=== PATIENT | male | born 1990 | race Caucasian/White ===

== ENCOUNTER 2020-06-04 16:11 | Outpatient (REF) | payer MEDICAID, SELFPAY ==
[2020-06-04 16:49] LABS: MANUAL DIFF FLAG NO
[2020-06-04 16:55] LABS: Basophils Percent Auto 0.2 % (0-2); Eosinophils Absolute Auto 0.1 X10*3/uL (0.0-0.4); Eosinophils Percent Auto 1.2 % (0-4); Hematocrit 45.5 % (42-52); Hemoglobin 15.4 g/dl (14.0-18.0); Imm Gran Abs Auto 0.01 X10*3/uL (0.00-0.03); Imm Gran Pct Auto 0.2 % (0.0-0.4); Lymphocytes Absolute Auto 1.6 X10*3/uL (1.2-4.9); Lymphocytes Percent Auto 33.1 % (20-40); Mean Corpuscular HGB Conc 33.8 g/dl (31.0-36.0); Mean Corpuscular Hemoglobin 27.9 pg (27.0-33.0); Mean Corpuscular Volume 82.6 fL (80-98); Mean Platelet Volume 9.5 fL (9.4-12.4); Monocytes Absolute Auto 0.6 X10*3/uL (0.1-1.2); Monocytes Percent Auto 11.3 % (2-11); Neutrophils Absolute Auto 2.7 X10*3/uL (2.0-8.3); Platelet Count 264 X10*3/uL (160-400); Red Blood Count 5.51 X10*6/uL (4.60-5.80); Red Cell Distribution Width 12.6 % (11.0-16.0)
[2020-06-04 17:27] LABS: Alanine Aminotransferase 113 U/L (0-40); Albumin Level 4.5 g/dL (3.5-5.0); Alkaline Phosphatase 82 U/L (39-117); Anion Gap 14 (12-20); Aspartate Amino Transferase 44 U/L (5-37); Bilirubin Total 0.5 mg/dL (0.0-1.0); Blood Urea Nitrogen 15 mg/dL (9-16); Calcium 9.4 mg/dL (8.4-10.2); Carbon Dioxide 26 mmol/L (22-29); Chloride 105 mmol/L (96-108); Cholesterol 154 mg/dL; Estimated Glomerular Filt Rate > 60; Glucose Random 93 mg/dL (60-115); Potassium 3.8 mmol/L (3.3-5.1); Sodium 141 mmol/L (135-145); Total Protein 7.7 g/dL (6.5-8.0)
[2020-06-04 17:42] LABS: Thyroid Stimulating Hormone 2.19 uIU/mL (0.32-4.0)
== END 2020-06-04 16:12 | disposition home or self-care (01) ==
LOC: HO.LAB 16:11
PROVIDERS: PCP Internal Medicine; Visit Provider Internal Medicine
DX: R79.89 Other specified abnormal findings of blood chemistry (principal); R63.5 Abnormal weight gain
CPT/HCPCS: 36415; 80053; 82465; 84443; 85025

== ENCOUNTER 2020-06-18 08:23 | Outpatient (REF) | payer MEDICAID, SELFPAY ==
--- NOTE | ~2020-06-18 | US_ITS ---
EXAMINATION: US ABDOMEN COMPLETE CLINICAL INFORMATION: Abdominal pain. COMPARISON: None TECHNIQUE: Real-time imaging of the abdominal viscera. FINDINGS: PANCREAS: Head and body unremarkable. The tail is obscured by overlying bowel gas. ABDOMINAL AORTA: The proximal, mid, and distal segments are normal in caliber. INFERIOR VENA CAVA: Visualized portions are normal. LIVER: There is diffuse increased echogenicity of the liver consistent with fatty infiltration. The liver is normal in size. The liver contour is normal. No focal hepatic lesion. There is no intrahepatic biliary duct dilatation seen. GALLBLADDER: Normal. The gallbladder is physiologically distended without evidence of stones, sludge, polyps, wall thickening or pericholecystic fluid. COMMON BILE DUCT: Not identified. RIGHT KIDNEY: Normal. No hydronephrosis. No renal calculi or focal parenchymal lesions. The kidney measures 11.4 cm in maximum dimension. LEFT KIDNEY: Normal. No hydronephrosis. No renal calculi or focal parenchymal lesions. The kidney measures 10.0 cm in maximum dimension. SPLEEN: Normal. The spleen measures 9.4 cm in maximum dimension. FREE FLUID: None. US/US abdomen complete IMPRESSION: Fatty infiltration of the liver.
== END 2020-06-18 08:24 | disposition home or self-care (01) ==
LOC: HO.US 08:23
PROVIDERS: PCP Internal Medicine; Visit Provider Internal Medicine
DX: R10.9 Unspecified abdominal pain (principal)
CPT/HCPCS: 76700

== ENCOUNTER 2024-05-23 15:55 | Emergency (ER) | payer MEDICAID, SELFPAY ==
--- NOTE | ~2024-05-23 | CT_ITS ---
CLINICAL HISTORY: fall and hit head CT cervical spine without contrast Comparison: None Findings: No acute fracture of the cervical spine. Mild reversal of the cervical lordosis. 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 Mild left foraminal narrowing of the cervicothoracic junction with minimal facet arthropathy. Additional ligament calcifications noted. No paraspinal hematoma. Mild motion about imaged lung apices. Degenerative changes include imaged temporomandibular joints. IMPRESSION: 1. No acute fracture of the cervical spine. 2. Reversal of the cervical lordosis. This document has been electronically signed by: Eric Soliz MD on 05/23/2024 21:17:51
--- NOTE | ~2024-05-23 | CT_ITS ---
CLINICAL HISTORY: fall and hit head CT head without contrast Comparison: None Findings: No acute intracranial hemorrhage. No midline shift or hydrocephalus. [place] matter-white matter differentiation is adequate for technique and artifacts. Imaged paranasal sinuses are well aerated. Imaged mastoid air cells are well aerated. No acute skull fracture. Scalp Scarring suggested , particularly over left parietal and occipital convexities. IMPRESSION: No acute intracranial abnormality by CT. This document has been electronically signed by: Eric Soliz MD on 05/23/2024 21:31:02
--- NOTE | ~2024-05-23 | CT_ITS ---
CLINICAL HISTORY: fall, L sided swelling and laceration CT maxillofacial without contrast Comparison: None Findings: No acute fractures. No dislocations. Temporomandibular joints are intact. Mucosal thickening within the right maxillary sinus. No air-fluid levels. Unremarkable orbital contents. Visualized intracranial contents are within normal limits. Tiny pocket of gas within the soft tissues of the left cheek, compatible with penetrating injury. No radiopaque foreign body. IMPRESSION: No evidence of fracture or foreign body. This document has been electronically signed by: Leyla Abebe MD on 05/23/2024 17:21:38
[2024-05-23 16:01] VITALS: BP 139/71; PULSE 101; RESP 18; TEMP 37.2; O2SAT 100; BMI 38.9
--- NOTE | 2024-05-23 16:01 | ED_ITS ---
HPI - General Adult General Chief complaint: Head Injury Stated complaint: L Eye Cheek Lac Fall 05/23/24 Time Seen by Provider: 05/23/24 20:20 Source: patient Mode of arrival: ambulatory Limitations: no limitations History of Present Illness ED Provider: Jeremiah BRANDON HPI narrative: 33 yold male presents to ED for left cheek laceration after falling down the stairs. Patient states he was going down the stairs in the basement did not turn the light off any tripped and fell and hit his face on the heater. Patient denies any other complaints or loss of consciousness. Patient states no past medical history Related Data Allergies Allergy/AdvReac Type Severity Reaction Status Date / Time No Known Allergies Allergy Verified 05/23/24 16:04 Review of Systems 2 Review of Systems: Left cheek laceration Yes all other systems are reviewed and are negative COUNT INCLUDES THE [facility] Social History Social History Alcohol intake: never Smoked in Last 30 Days: No Use of substances other than those prescribed or required for medical reasons: No Advance Directives: No Advance Directives Information Provided: Yes Physical Exam ED Vital Signs: Vital Signs - 24 hr 05/23/24 16:01 05/23/24 22:13 05/23/24 22:21 Temperature 99 F 98.2 F 98.2 F Pulse Rate 101 H 83 83 Respiratory Rate 18 17 17 Blood Pressure 139/71 130/79 130/79 Pulse Oximetry 100 99 99 Oxygen Delivery Method Room Air Room Air BMI result Body Mass Index 38.9 Const General: cooperative, healthy appearing, comfortable, no acute distress, well developed, alert, awake and Physically active Orientation/consciousness: patient oriented x3 HENMT Head: Yes normal to inspection, Yes No palpable skull fracture present, Yes normocephalic and Yes atraumatic Head images: 2 1. Laceration control bleeding. No muscle bone exposure. Mild tenderness on palpation. Ears: hearing grossly normal bilaterally, external ears normal, TM's normal bilaterally, TM normal on the right, TM normal on the left, EAC's normal, mastoids normal and no periauricular adenopathy Eyes General: appearance normal, both eyes and all related structures Neck Neck: Yes normal visual inspection, Yes full ROM, Yes no lymphadenopathy, Yes no meningeal signs, Yes trachea midline, Yes supple, No anterior neck swelling and No tender Chest Chest palpation & inspection: normal inspection of the chest and normal palpation of entire chest wall Resp Effort & Inspection: normal respiratory effort and able to speak in complete sentences Auscultation: clear to auscultation bilaterally Cardio Jugular venous distension: no JVD Heart sounds: S1 normal heart sound present and S2 normal heart sound present GI Inspection: Yes normal to inspection Palpation (GI): Soft to palpation, not firm, nontender, no guarding and not rigid General: Yes no CVA tenderness Back/Spine/Pelvis Back: no CVA tenderness and No back tenderness Skin General skin exam: no rashes or lesions noted, elasticity normal and turgor normal Neuro General: patient oriented x3, gait normal, tone normal, moves all extremities, Normal light touch and pain sensation, no meningeal signs, no focal motor deficits, CN's II-XI intact bilaterally and normal sensation to monofilament Extrem General: Yes normal to inspection, Yes full ROM and Yes capillary refill normal Psych Appearance: grossly normal, well kempt and not disheveled Course Course Course Narrative: This is a rapid medical exam performed by Viridiana Vera NP: Additional HPI, ROS, PE not included below will be deferred to primary provider. Patient is a 33-year-old male with cognitive delay presenting with mother with complaint of facial injury. States he missed a step while walking down the stairs, and fell hitting his face on the railing. Denies loss of consciousness. Unsure last tetanus. Not anticoagulated. Approx 1 laceration to left maxillary area, contusion L eyebrow. Plan: lac will require repair, update Tdap, CT facial bones Medications Administered Discontinued Medications Generic Name Dose Route Start Last Admin Trade Name Deanna PRN Reason Stop Dose Admin Diphtheria/Tetanus/Acell Pertussis 0.5 ml 05/23/24 16:05 05/23/24 21:09 Diphth,Pertus(Acell),Tet Adult 0.5 Ml Syringe IM 05/23/24 16:06 0.5 ml .ONCE ONE Administration Lidocaine/Epinephrine 10 ml 05/23/24 21:08 05/23/24 21:10 Lidocaine Hcl 1%/Epi 1:100,000 10 Ml Vial INFILTRATI 05/23/24 21:09 10 ml ONCE ONE Administration Medical Decision Making Medical Decision Making MDM Narrative: 33-year-old male with left cheek laceration after falling down stairs. Head and neck cervical spine imaging came back normal. Facial CT scan normal. Wound cleaned with sterile saline Betadine iodine. Lidocaine 1% with epi used 6ml for local injection. Seven nylon sutures placed. Family member and patient explained worrisome signs and informed to return to the ED immediately. Differential Diagnosis Differential Diagnoses: The differential diagnosis associated with the presentation includes (Patient fracture brain bleed cervical spine fracture) Admission/Observation Consideration of admission/observation: Escalation of care including admission/observation considered Independent Interpretation I performed an independent interpretation of an: CT Scan Independent Historian Clinical information obtained from an independent historian. History obtained from or confirmed by: Other (Patient) Discharge Plan Discharge Clinical Impression: Closed head injury, Facial laceration Patient Disposition: Home, Self-Care Instructions: Laceration (ED), Head Injury (ED) Additional Instructions: Your images came back negative for any life-threatening etiologies. Your sutures should be kept dry the 1st 48 hours. Sutures should be removed within the next 5-7 days at any ED urgent care or primary care provider. Return to the ED immediately for any headache, nausea, vomiting, chest pain, shortness of breath, or any other concerning symptoms. Recommend follow up with primary care provider Stand Alone Forms: Work/School Release Interventions: ED Discharge Assessment Last Done: 05/23/24 22:21 Discharge Date/Time: 05/23/24 22:22 Print Language: Greek
--- OUTSIDE RECORDS SUMMARY | 2024-05-23 19:43 | XMS_ITS | Clinical Summary ---
Author Organization [facility] Address [address] [place] [address] Phone Care Team Providers Care Concession Attendant Name Role Phone Unavailable Primary Care Provider Unavailabl e Immunizations Name Administration Dates Next Due DTP 06/21/1996, 5,02/25/1994,02/19,01/11/1992 Hep B, ped/adol 03/29/1995,01/11/1992,1991 Hib (PRP-T) 02/04/1994,02/20/1992,01/11/1992 MMR 06/21/1996,02/04/1994 Meningococcal Conj (Menactra) MCV4P 12/23/2006 OPV 06/21/1996, 4,02/20/1992,01/10 Td (adult) (MBL), 2 Lf tetan us toxoid, PF, adsorbed 09/12/2003 Tdap 12/23/2006 Family History Relation Name Status Comments Brother Alive Brother: Health y, Healthy, healthy Father Alive Father: Healthy Maternal Grandmother Materna l grandmother: Heart disease, Asthma Mother Alive Mother: Healthy Social History Tobacco Use Types Packs/Day Years Used Date Smoking Tobacco: Never Assessed Sex and Gender Information Value Date Recorded Sex Assigned at Not on file Legal Sex Male 4:43 PM EDT Gender Identity Not on file Sexual Orientation Not on file Last Filed Vital Signs Vital Sign Reading Time Taken Comments Blood Pressure - - Pulse - - Temperature 36.4 ??C (97.5 ??F) 08/14/2010 12:00 AM E DT Respiratory Rate - - Oxygen Saturation - - Inhaled Oxygen Concentration - - Weight 84.8 kg (187 lb) 08/14/2010 12:00 AM EDT Height - - Body Mass Index - - Plan of Treatment Health Maintenance Due Date Last Done Comments Varicella Vaccines (1 of 2 - 13+ 2-dose series) 08/22/2004 DTaP,Tdap,and Td Vaccines (7 - Td or Tdap) 12/23/2016 12/23/2006, 09/12/2003, 06/21/1996, Additional history exists Influenza Vaccines (#1) 2023 COVID-19 Vaccine ( - season) 2024 HIB Vaccines Completed 02/04/1994, 01/31, 01/11/1992 Hepatitis B Vaccines Completed 03/29/1995, 01/11/1992, 1991 IPV Vaccines Completed 06/21/1996, 01/31, 02/20/1992, Additional history exists MMR Vaccines Completed 06/21/1996, 02/04/1994 Meningococcal Vaccine Aged Out 12/23/2006 No liliana anson eligible based on patient's age to complete this topic HPV Vaccines Aged Out No longer eligi ble based on patient's age to complete this topic Hepatitis A Vaccines Aged Out No long er eligible based on patient's age to complete this topic Men B Vaccine Aged Out No longer elig ible based on patient's age to complete this topic Pneumococcal Vaccine Aged Out No long er eligible based on patient's age to complete this topic
--- OUTSIDE RECORDS SUMMARY | 2024-05-23 19:43 | XMS_ITS | Encounter Summary ---
Author Organization [facility] Address [address] [place] [address] Phone Care Team Providers Care Liner Reroll Tender Name Role Phone Unavailable Primary Care Provider Unavailabl e Encounter Details Date Type Department Care Team (Late st Contact Info) Description 12/16/2016 Conversion Encounter [facility] - [address] [address] Social History Tobacco Use Types Packs/Day Years Used Date Smoking Tobacco: Never Assessed Sex and Gender Information Value Date Recorded Sex Assigned at Not on file Legal Sex Male 4:43 PM EDT Gender Identity Not on file Sexual Orientation Not on file documented as of this encounter Plan of Treatment Not on file documented as of this encounter Visit Diagnoses Not on filedocumented in this encounter
[2024-05-23] MEDS: Diphth,Pertus(ACell),Tet Adult 0.5 ML SYRINGE IM (21:09)
[2024-05-23] MEDS: Lidocaine HCl 1%/Epi 1:100,000 10 ML VIAL INFILTRATI (21:10)
[2024-05-23 22:13] VITALS: BP 130/79; PULSE 83; RESP 17; TEMP 36.8; O2SAT 99
[2024-05-23 22:21] VITALS: BP 130/79; PULSE 83; RESP 17; TEMP 36.8; O2SAT 99
== END 2024-05-23 22:22 | disposition home or self-care (01) ==
PROVIDERS: Emergency Provider Emergency Medicine Emergency Medical Services; PCP Internal Medicine
DX: S01.81XA Laceration without foreign body of other part of head, initial encounter (principal); S00.12XA Contusion of left eyelid and periocular area, initial encounter; M54.2 Cervicalgia; R41.9 Unspecified symptoms and signs involving cognitive functions and awareness; W10.9XXA Fall (on) (from) unspecified stairs and steps, initial encounter; Y93.9 Activity, unspecified; Y92.9 Unspecified place or not applicable; Y99.8 Other external cause status; Z23 Encounter for immunization
CPT/HCPCS: 12013; 70450; 70486; 72125; 90471; 90715; 99284; J2004

== ENCOUNTER → 2024-05-23 16:05 | Outpatient (BNV) | payer MEDICAID, SELFPAY | PROVIDERS: PCP Internal Medicine; Visit Provider Radiology Diagnostic Radiology | DX: M54.2 Cervicalgia (principal); S01.81XA Laceration without foreign body of other part of head, initial encounter; S09.90XA Unspecified injury of head, initial encounter; W19.XXXA Unspecified fall, initial encounter | CPT/HCPCS: 70450; 70486; 72125 ==

== ENCOUNTER 2024-06-02 11:45 | Outpatient (AMB) | payer MEDICARE, MEDICAID, SELFPAY ==
[2024-06-02 11:47] VITALS: BP 122/80; PULSE 68; TEMP 36.7; O2SAT 98; BMI 38.8
--- NOTE | 2024-06-02 11:47 | MHC.OFFWIV ---
Intake Vital Signs 06/02/24 11:47 Height 5 ft 5 in Weight 233 lb BMI 38.8 BP 122/80 Blood Pressure Location Lt brachial Position Sitting Pulse 68 Pulse Source Pulse Oximeter Temp 98.1 F Temp Source Oral Pulse Oximetry (%) 98 Intake Visit Reasons: [employer] LIAISON-Stiches taken off Intake Note: pt is here for suture removal Patient Tobacco Use Status: Never used Tobacco Accompanied by: Mother Allergies No Known Allergies Allergy (Verified 06/02/24 11:48) Do you need a note to return to daycare/school/sports/work: No HPI HPI Comments History of Present Illness Details History of Present Illness The patient is a 33-year-old male presenting with a request for removal of sutures from facial lac 05/23/24.. The laceration occurred 05/23/24 when the patient accidentally struck his face against a heater while descending stairs. The injury was managed at a hospital where the patient received seven sutures, and a tetanus immunization was updated at that time. The patient reports no loss of consciousness or systemic symptoms following the injury. A computed tomography (CT) scan was performed to assess for facial or neck fractures due to concurrent facial trauma, yielding negative results. The patient states the sutures have remained intact with no complications since placement. He experiences mild discomfort during daily activities, but there have been no signs of infection or dehiscence. [facility] [place] reviewed today Physical Exam General: Awake, alert. No apparent distress, accompanied by Mom Eyes: Sclera and conjunctiva clear bilaterally Approx 1 laceration to left maxillary area, edges well approx, no drainage no erythema. #7 sutures inserted,but only #6 removed. Lac was cleansed with alcohol prep and 3 steristrips applied. Pt tolerated well. Results - Imaging: CT scan of the face and neck was negative for fractures. Discussion Notes During the encounter, I discussed with the patient the successful removal of six sutures from his finger, noting that only six needed to be removed due to satisfactory healing.I placed SteriStrips over the laceration to ensure continued wound closure, reassuring the patient that healing was progressing well. I provided verbal instruction on wound care and clarified the absence of need for antibiotic ointments, emphasizing normal face washing without scrubbing. Anticipatory guidance regarding sutures and future avoidance of similar incidents was discussed. Patient Instructions - Keep the wound clean and dry. - Allow the SteriStrips to fall off naturally within 7 to 10 days; avoid pulling. - Wash your face normally but refrain from vigorous scrubbing in the area of the former sutures. - Return for follow-up if any signs of infection or other concerns arise. Plan - Monitor healing of the lacerated finger post-suture removal. - Maintain SteriStrips until natural detachment is observed. - Educate on proper wound care and provide safety advice regarding stair usage to prevent future injuries. Patient was informed and verbally consented to the use of an ambient scribe for clinic note documentation during this visit. REPLACED BY [facility] Social History Alcohol intake: never Patient Tobacco Use Status: Never used Tobacco Physical Exam Vital Signs: Last Vital Signs Temp 98.1 F 06/02/24 11:47 Pulse 68 06/02/24 11:47 BP 122/80 06/02/24 11:47 Pulse Ox 98 06/02/24 11:47 BMI result Body Mass Index 38.8 Assessment & Plan Assessment & Plan (1) Visit for suture removal: Code(s): Z48.02 - Encounter for removal of sutures (2) Facial laceration: Code(s): S01.81XA - Laceration without foreign body of other part of head, initial encounter Qualifiers: Encounter type: subsequent encounter Qualified Code(s): S01.81XD - Laceration without foreign body of other part of head, subsequent encounter Plan . Coding Level of Care Code Est Pt Level 4 (28299) Diagnoses Visit for suture removal Z48.02 Facial laceration, subsequent encounter S01.81XD Encounter type: subsequent encounter Time Spent (min) 30
--- OUTSIDE RECORDS SUMMARY | 2024-06-02 11:47 | XMS_ITS | Encounter Summary ---
Author Organization [facility] Address [address] [place] [address] Phone Care Team Providers Care Cloud Architect Name Role Phone Unavailable Primary Care Provider Unavailabl e Encounter Details Date Type Department Care Team (Late st Contact Info) Description 12/16/2016 Conversion Encounter [facility] - [address] [address] Social History Tobacco Use Types Packs/Day Years [...]
--- OUTSIDE RECORDS SUMMARY | 2024-06-02 11:47 | XMS_ITS | Clinical Summary ---
Author Organization [facility] Address [address] [place] [address] Phone Care Team Providers Care Delivery Stock Clerk Name Role Phone Unavailable Primary Care Provider [...]
== END 2024-06-02 12:37 | disposition home or self-care (01) ==
PROVIDERS: PCP Internal Medicine; Visit Provider Nurse Practitioner Family
DX: S01.81XD Laceration without foreign body of other part of head, subsequent encounter (principal); Z48.02 Encounter for removal of sutures

== ENCOUNTER → 2024-06-02 11:45 | Outpatient (BNVA) | payer MEDICARE, MEDICAID, SELFPAY | PROVIDERS: PCP Internal Medicine | DX: Z48.02 Encounter for removal of sutures (principal); S01.81XD Laceration without foreign body of other part of head, subsequent encounter | CPT/HCPCS: 99212 ==